=== PATIENT | male | born 1955 | race Caucasian/White ===

== ENCOUNTER 2016-10-17 11:52 | Emergency (ER) | payer OTHER ==
--- NOTE | ~2016-10-17 | CR71 ---
[facility]. [facility] A Service of [facility] RADIOLOGY TEXT RESULTS PATIENT: PAULINE VALERIO LOCATION: SED : 59 UNIT #: [id number] AGE: [address]: Deepak Morales MD SEX: M ORDER DR: [id number] [place] [address] [id number] MR#: [id number] Acc #: [id number] NAME: PAULINE VALERIO : 1955 SEX: M STUDY DATE/TIME: 10/17/2016 13:42 UNIT: SED ROOM: STUDY DESCRIPTION: CR Chest Single View Attending Physician: Deepak Morales M.D. Ordering Physician: Deepak Morales M.D. Primary Care Physician: Pee Dunn M.D. MEDICAL IMAGING REPORT This report is preliminary unless electronic signature is present. EXAM Portable chest. INDICATION Swelling, hives, itchiness today. Allergic reaction. COMPARISON No comparisons. FINDINGS The lungs are well expanded. No acute infiltrate. Minimal atelectasis or scarring in the left base. Heart size normal. Left-sided PICC line. IMPRESSION No active disease. Dictated by... Scotty Nugent M.D. THIS IS AN ELECTRONICALLY VERIFIED REPORT Scotty Nugent M.D. at 10/17/2016 5:29 PM VALDEMAR/sonya TD: 10/17/2016 15:25 JOB #: [id number] MEDICAL IMAGING REPORT Page 1 of 1
[2016-10-17] MEDS ORDERED: LEVAQUIN750 MG PO (12:06)
[2016-10-17 13:11] LABS: BASOPHIL% 0.2 % (0-2.5); EOSINOPHIL% 0.4 % (0.0-7.0); HEMATOCRIT 39.7 % (38.0-50.0); LYMPHOCYTE# 0.7 X10e3 (1.0-3.5); LYMPHOCYTE% 10.6 % (17.0-45.0); MEAN CELL VOLUME 92.3 FL (83-96); MEAN CORPUSCULAR HEMOGLOBIN 31.5 PG (28-34); MEAN CORPUSCULAR HGB CONC 34.1 g/dL (30-36); MEAN PLATELET VOLUME 9.2 FL (6.5-11.5); MONOCYTE# 0.2 X10e3 (0-1.0); MONOCYTE% 2.9 % (3.0-12.0); NEUTROPHIL# 5.7 X10e3 (1.5-7.1); NEUTROPHIL% 85.9 % (40-75); PLATELET COUNT 197 X10e3 (140-420); RED CELL DISTRIBUTION WIDTH 14.9 % (11.0-15.5); WHITE BLOOD COUNT 6.6 X10e3 (4.0-10.5)
[2016-10-17 13:21] LABS: DIFF IND NO; HEMOGLOBIN 13.5 gm/dL (13.0-16.0)
[2016-10-17 13:37] LABS: ALBUMIN SERUM 3.4 g/dL (3.5-5.0); BILIRUBIN, DIRECT 0.3 mg/dL (0.0-0.2); BILIRUBIN,TOTAL 1.3 mg/dL (0.2-2.0); BUN/CREATININE RATIO 16.4; CALCIUM SERUM 8.5 mg/dL (8.4-10.2); CREATININE SERUM 2.5 mg/dL (0.6-1.4); GLOM FILT RATE Estimated 27.1 mL/min (>60); POTASSIUM 5.3 mmol/L (3.5-5.1); PROTEIN TOTAL SERUM 6.6 g/dL (6.0-8.3)
== END 2016-10-17 18:40 ==
LOC: SED 11:52
PROVIDERS: Emergency Medicine
DX: R21 Rash and other nonspecific skin eruption (principal); T36.1X5A Adverse effect of cephalosporins and other beta-lactam antibiotics, initial encounter; I12.9 Hypertensive chronic kidney disease with stage 1 through stage 4 chronic kidney disease, or unspecified chronic kidney disease; G62.9 Polyneuropathy, unspecified; E08.22 Diabetes mellitus due to underlying condition with diabetic chronic kidney disease; N18.9 Chronic kidney disease, unspecified; Z79.4 Long term (current) use of insulin; Z88.5 Allergy status to narcotic agent; Z88.8 Allergy status to other drugs, medicaments and biological substances
CPT/HCPCS: 36415; 71010; 80048; 80076; 85025; 96361; 96374; 96375; 99284; J1200; J2930